=== PATIENT | female | born 2005 | race Caucasian/White ===

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

== ENCOUNTER 2024-02-14 16:45 | Emergency (ER) | payer SELFPAY ==
[2024-02-14] MEDS: Sodium Chloride 0.9% 1,000 ML IV ONE (17:13)
[2024-02-14 17:15] LABS: BASOPHILS ABSOLUTE AUTO 0.05 K/uL (0.00-0.30); BASOPHILS PERCENT AUTO 0.8 % (0.0-1.0); EOSINOPHILS PERCENT AUTO 3.3 % (0.0-5.0); HEMATOCRIT 38.4 % (37.0-47.0); IMMATURE GRAN ABSOLUTE AUTO 0.01 K/uL (0.00-0.05); IMMATURE GRAN PERCENT AUTO 0.2 % (0.0-0.4); LYMPHOCYTES ABSOLUTE AUTO 2.08 K/uL (2.00-8.80); LYMPHOCYTES PERCENT AUTO 34.6 % (50.0-65.0); MEAN CORPUSCULAR HEMOGLOBIN 28.2 pg (28.0-32.0); MEAN CORPUSCULAR HGB CONC 33.9 g/dL (32.0-36.0); MEAN CORPUSCULAR VOLUME 83.3 fL (83.0-99.0); MEAN PLATELET VOLUME 9.8 fL (9.4-12.3); MONOCYTES ABSOLUTE AUTO 0.44 K/uL (0.10-1.40); MONOCYTES PERCENT AUTO 7.3 % (2.0-10.0); NEUTROPHILS ABSOLUTE AUTO 3.23 K/uL (1.50-8.50); NEUTROPHILS PERCENT AUTO 53.8 % (35.0-45.0); PLATELET COUNT,PLT 310 K/uL (150-400); RED BLOOD CELL COUNT 4.61 M/uL (4.10-5.30); WHITE BLOOD CELL COUNT,WBC 6.01 K/uL (4.5-13.5)
[2024-02-14 17:28] LABS: APPEARANCE,URINE CLEAR; BILIRUBIN,URINE NEGATIVE (NEGATIVE); COLOR,URINE YELLOW; GLUCOSE,URINE NEGATIVE (NEGATIVE); KETONES,URINE NEGATIVE (NEGATIVE); LEUKOCYTE ESTERASE,URINE NEGATIVE (NEGATIVE); NITRITE,URINE NEGATIVE (NEGATIVE); OCCULT BLOOD,URINE NEGATIVE (NEGATIVE); PROTEIN,URINE NEGATIVE (NEGATIVE)
[2024-02-14 17:35] LABS: A/G RATIO 1.3 (0.9-1.6); ALBUMIN 3.8 g/dL (3.4-5.0); BILIRUBIN TOTAL 0.9 mg/dL (0.2-1.0); CALCIUM 9.1 mg/dL (8.5-10.1); CARBON DIOXIDE,CO2 25.1 mmol/L (21.0-32.0); CREATININE 0.9 mg/dL (0.6-1.0); EST CRCL DRUG DOSING (CG) 101.42 mL/min; POTASSIUM,K 3.8 mmol/L (3.5-5.1); PROTEIN TOTAL,TP 6.7 g/dL (6.4-8.2)
== END 2024-02-14 18:30 | disposition home or self-care (01) ==
LOC: MW.ED 16:45
DX: R55 Syncope and collapse (principal)
CPT/HCPCS: 36415; 80053; 81003; 81025; 84484; 85025; 93005; 96360; 99284; J7030; 99283

== ENCOUNTER 2024-04-04 19:04 | Emergency (ER) | payer SELFPAY ==
[2024-04-04] MEDS: Ondansetron 4 MG/2 ML SDV IVPUSH ONE (19:44)
[2024-04-04] MEDS: Famotidine 20 MG/2 ML SDV IVPUSH ONE (19:44)
[2024-04-04] MEDS: Sodium Chloride 0.9% 10 ML Syringe FLUSH PRN (20:15)
[2024-04-04] MEDS: Sodium Chloride 0.9% 2.5 ML Syringe FLUSH PRN (20:16)
[2024-04-04 20:22] LABS: BASOPHILS ABSOLUTE AUTO 0.04 K/uL (0.00-0.30); BASOPHILS PERCENT AUTO 0.5 % (0.0-1.0); EOSINOPHILS ABSOLUTE AUTO 0.17 K/uL (0.00-0.70); EOSINOPHILS PERCENT AUTO 2.2 % (0.0-5.0); HEMATOCRIT 37.6 % (37.0-47.0); IMMATURE GRAN ABSOLUTE AUTO 0.01 K/uL (0.00-0.05); IMMATURE GRAN PERCENT AUTO 0.1 % (0.0-0.4); LYMPHOCYTES ABSOLUTE AUTO 2.23 K/uL (2.00-8.80); LYMPHOCYTES PERCENT AUTO 29.1 % (50.0-65.0); MEAN CORPUSCULAR HGB CONC 34.6 g/dL (32.0-36.0); MEAN CORPUSCULAR VOLUME 83.9 fL (83.0-99.0); MEAN PLATELET VOLUME 9.6 fL (9.4-12.3); MONOCYTES ABSOLUTE AUTO 0.39 K/uL (0.10-1.40); MONOCYTES PERCENT AUTO 5.1 % (2.0-10.0); NEUTROPHILS ABSOLUTE AUTO 4.82 K/uL (1.50-8.50); PLATELET COUNT,PLT 348 K/uL (150-400); RED BLOOD CELL COUNT 4.48 M/uL (4.10-5.30); WHITE BLOOD CELL COUNT,WBC 7.66 K/uL (4.5-13.5)
[2024-04-04 20:43] LABS: A/G RATIO 1.1 (0.9-1.6); ALBUMIN 3.9 g/dL (3.4-5.0); BILIRUBIN TOTAL 0.7 mg/dL (0.2-1.0); CALCIUM 9.1 mg/dL (8.5-10.1); CARBON DIOXIDE,CO2 27.2 mmol/L (21.0-32.0); CREATININE 0.8 mg/dL (0.6-1.0); EST CRCL DRUG DOSING (CG) 101.78 mL/min; POTASSIUM,K 3.7 mmol/L (3.5-5.1); PROTEIN TOTAL,TP 7.5 g/dL (6.4-8.2)
[2024-04-04] MEDS: Aluminum Hydroxide/Magnesium Hydroxide/Simethicone Susp 30 ML Cup PO ONE (20:55)
[2024-04-04] MEDS: Pantoprazole 40 MG in Sodium Chloride 0.9% 10 ML IVPUSH ONE (21:14)
== END 2024-04-04 22:50 | disposition home or self-care (01) ==
LOC: MW.ED 19:04
DX: K21.9 Gastro-esophageal reflux disease without esophagitis (principal); F17.210 Nicotine dependence, cigarettes, uncomplicated
CPT/HCPCS: 36415; 71045; 80053; 83690; 85025; 93005; 96374; 96375; 99284; A9270; J2405; J2470; J3490

== ENCOUNTER 2025-02-05 20:32 | Inpatient (IN) | payer SELFPAY ==
[2025-02-05 22:24] LABS: BASOPHILS ABSOLUTE AUTO 0.04 K/uL (0.00-0.20); BASOPHILS PERCENT AUTO 0.4 % (0.0-1.0); EOSINOPHILS ABSOLUTE AUTO 0.19 K/uL (0.00-0.45); EOSINOPHILS PERCENT AUTO 1.8 % (0.0-6.0); IMMATURE GRAN ABSOLUTE AUTO 0.07 K/uL (0.00-0.05); IMMATURE GRAN PERCENT AUTO 0.6 % (0.0-0.4); LYMPHOCYTES ABSOLUTE AUTO 2.30 K/uL (1.00-4.80); LYMPHOCYTES PERCENT AUTO 21.2 % (24.0-44.0); MEAN PLATELET VOLUME 9.7 fL (9.4-12.3); MONOCYTES ABSOLUTE AUTO 0.71 K/uL (0.00-0.80); MONOCYTES PERCENT AUTO 6.5 % (0.0-8.0); NEUTROPHILS ABSOLUTE AUTO 7.54 K/uL (1.80-7.70); NEUTROPHILS PERCENT AUTO 69.5 % (41.0-71.0); NRBC ABSOLUTE 0.00 K/uL (0.00-0.02); NRBC PERCENT 0.0 /100WBC (0.0-0.2); PLATELET COUNT,PLT 315 K/uL (150-400); RED BLOOD CELL COUNT 4.61 M/uL (4.10-5.30); WHITE BLOOD CELL COUNT,WBC 10.85 K/uL (3.9-11.3)
[2025-02-05 22:27] LABS: GLUCOSE,URINE NEGATIVE (NEGATIVE); OCCULT BLOOD,URINE SMALL (NEGATIVE)
[2025-02-05 22:42] LABS: APPEARANCE,URINE HAZY; EPITHELIAL CELLS,URINE FEW (NONE-FEW)
[2025-02-05 22:43] LABS: CREATININE,URINE RAND 73.4 mg/dL; PROTEIN CREATININE RATIO,URINE 0.1; PROTEIN,URINE RANDOM 9.9 mg/dL (<11.9)
[2025-02-05 22:47] LABS: A/G RATIO 0.7 (0.9-1.6); ALANINE AMINOTRANSFERASE,ALT 30.0 IU/L (14-63); ASPARTATE AMNIOTRANSFERASE,AST 30.0 IU/L (15-37); BILIRUBIN TOTAL 0.5 mg/dL (0.2-1.0); BLOOD UREA NITROGEN,BUN 5.0 mg/dL (7.0-18.0); CARBON DIOXIDE,CO2 22.4 mmol/L (21.0-32.0); CHLORIDE,CL 104.0 mmol/L (98-107); CREATININE 0.7 mg/dL (0.6-1.0); EST CRCL DRUG DOSING (CG) 115.36 mL/min; GLUCOSE RANDOM 80.0 mg/dL (74-106); POTASSIUM,K 3.9 mmol/L (3.5-5.1); PROTEIN TOTAL,TP 6.5 g/dL (6.4-8.2); SODIUM,NA 139.0 mmol/L (136-145)
[2025-02-05 22:49] LABS: ESTIMATED GFR 127.0 mL/min (>60)
[2025-02-05] MEDS ORDERED: Carboprost Tromethamine 250 MCG/1 mL Vial IM PRN (23:16)
[2025-02-05] MEDS ORDERED: Sodium Chloride 0.9% 2.5 ML Syringe FLUSH PRN (23:16)
[2025-02-05] MEDS ORDERED: Water For Irrigation,Sterile 1,000 ML Container IRR PRN (23:16)
[2025-02-05] MEDS ORDERED: Sodium Chloride 0.9% 10 ML Syringe FLUSH PRN (23:16)
[2025-02-05] MEDS ORDERED: Oxytocin/0.9 % Sodium Chloride 30 UNIT/500 ML BAG IV SCH (23:30)
[2025-02-06] MEDS: Lactated Ringers 1,000 ML IV SCH (00:19)
[2025-02-06] MEDS: Nalbuphine 10 MG/1 ML Vial IVPUSH PRN (02:29)
[2025-02-06] MEDS: Ondansetron 4 MG/2 ML SDV IVPUSH PRN (03:00)
[2025-02-06] MEDS ORDERED: ePHEDrine 50 MG/ML SDV IVPUSH PRN (05:54)
[2025-02-06] MEDS ORDERED: dexmedeTOMIDine HCl 200 MCG/2 ML SDV EPIDUR SCH (06:00)
[2025-02-06] MEDS: Oxytocin/0.9 % Sodium Chloride 30 UNIT/500 ML BAG IV SCH (14:24)
[2025-02-06] MEDS ORDERED: dexmedeTOMIDine HCl 200 MCG/2 ML SDV ONE (20:30)
[2025-02-06] MEDS ORDERED: Ropivacaine HCl/PF 200 ML ONE (20:30)
[2025-02-06] MEDS: Ropivacaine HCl/PF 400 MG in Premix Bag 1 BAG EPIDUR SCH (20:47)
[2025-02-07] MEDS ORDERED: Benzocaine/Menthol 20%-0.5% Spray 78 GM Cannister TOP PRN (08:45)
[2025-02-07] MEDS ORDERED: Lanolin 100% Cream 7 GM Tube TOP PRN (08:45)
[2025-02-07] MEDS ORDERED: Witch Hazel Medicated Pads 40/Jar TOP PRN (08:45)
[2025-02-07 08:52] LABS: PH,UMBILICAL ARTERIAL 7.36 (7.18-7.38); PH,UMBILICAL VENOUS 7.34 (7.25-7.45)
== END 2025-02-08 16:02 | disposition home or self-care (01) | DRG 806 ==
LOC: MW.OBCHECK 20:32 → MW.OB 20:37 → MW.OBCHECK 23:15 → MW.OB 23:16 → OBSVTOIN 02-07 08:33 → MW.OB 02-07 17:25
PROVIDERS: ADMIT Obstetrics & Gynecology; ATTEND Obstetrics & Gynecology
PROC: 10E0XZZ Delivery of Products of Conception, External Approach (ICD-10-PCS; principal; 2025-02-07)
PROC: 0HQ9XZZ Repair Perineum Skin, External Approach (ICD-10-PCS; 2025-02-07)
PROC: 3E0R3BZ Introduction of Anesthetic Agent into Spinal Canal, Percutaneous Approach (ICD-10-PCS; 2025-02-07)
PROC: 00HU33Z Insertion of Infusion Device into Spinal Canal, Percutaneous Approach (ICD-10-PCS; 2025-02-07)
PROC: 10907ZC Drainage of Amniotic Fluid, Therapeutic from Products of Conception, Via Natural or Artificial Opening (ICD-10-PCS; 2025-02-07)
DX: O13.4 Gestational [pregnancy-induced] hypertension without significant proteinuria, complicating childbirth (principal); O99.354 Diseases of the nervous system complicating childbirth; Z37.0 Single live birth; O99.334 Smoking (tobacco) complicating childbirth; G43.909 Migraine, unspecified, not intractable, without status migrainosus; O70.0 First degree perineal laceration during delivery; O69.81X0 Labor and delivery complicated by cord around neck, without compression, not applicable or unspecified; Z3A.38 38 weeks gestation of pregnancy
CPT/HCPCS: 36415; 51702; 59025; 80053; 81001; 82570; 82803; 84112; 84156; 84550; 85014; 85018; 85025; 86592; 86850; 86900; 86901; A9270-GY; J0665; J2300; J2371; J2405; J2590; J2795; J7120